=== PATIENT | male | born 1960 | race Caucasian/White ===

== ENCOUNTER 2017-01-04 20:54 | Emergency (ER) | payer OTHER ==
[~2017-01-04] VITALS: Ht 175.3 cm; Wt 78.0 kg
[~2017-01-04 20:54] MED LIST: BACT800T5 PO; CEPH500C3 PO
[2017-01-04 20:56] VITALS: BP 150/88; PULSE 71; RESP 18; TEMP 98.1; O2SAT 97
[2017-01-04] MEDS ORDERED: KETOROLAC TROMETHAMINE 60 MG/2 ML (IM) VIAL IM ONE (21:15)
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
[2017-01-04] MEDS ORDERED: TRAM50TA PO (22:13)
[2017-01-04] MEDS ORDERED: IBUP800T23 PO (22:17)
== END 2017-01-04 22:36 | disposition home or self-care (01) ==
LOC: NEPD 20:54
DX: S92.334A Nondisplaced fracture of third metatarsal bone, right foot, initial encounter for closed fracture (principal); S92.344A Nondisplaced fracture of fourth metatarsal bone, right foot, initial encounter for closed fracture; F41.9 Anxiety disorder, unspecified; G35 Multiple sclerosis; V28.4XXA Motorcycle driver injured in noncollision transport accident in traffic accident, initial encounter; Z79.899 Other long term (current) drug therapy
CPT/HCPCS: 73630; 96372; 99284; J1885; L2114

== ENCOUNTER → 2017-10-13 | Outpatient (CLI) | payer OTHER ==
[~2017-10-13] MED LIST changes: -BACT800T5 PO; -CEPH500C3 PO; +IBUP1TAB7 PO; +TRAM50TA PO
--- NOTE | 2017-10-14 23:11 | EKG ---
Date Performed: 10/13/2017 Time Performed: 09:44:24 PTAGE: 56 years EKG: Sinus rhythm BORDERLINE LEFT AXIS DEVIATION NONSPECIFIC T-WAVE ABNORMALITY ABNORMAL ECG PREVIOUS TRACING : 07/09/2012 16.04 Since the previous tracing, no significant change noted DOCTOR: Von Burns Interpretating Date/Time 10/14/2017 23:09:12
== END ==
LOC: CPRE 09:10
PROVIDERS: ATTEND Specialist
DX: Z01.810 Encounter for preprocedural cardiovascular examination (principal); J32.0 Chronic maxillary sinusitis; J34.2 Deviated nasal septum; J34.3 Hypertrophy of nasal turbinates; J32.3 Chronic sphenoidal sinusitis
CPT/HCPCS: 93005

== ENCOUNTER 2017-10-15 05:57 | Observation (INO) | payer OTHER ==
--- NOTE | 2017-10-14 17:19 | MH ---
cc: Bora Galaviz MD, Michael A MD DATE OF ADMISSION: 10/15/2017 HISTORY OF PRESENT ILLNESS: A 54-year-old gentleman with chronic sinusitis and nasal obstruction for nasal sinus surgery. PAST MEDICAL HISTORY: Unremarkable. PAST SURGICAL HISTORY: Unremarkable. REVIEW OF SYSTEMS, FAMILY HISTORY, SOCIAL HISTORY: Unremarkable. PHYSICAL EXAMINATION: GENERAL: Well appearing patient. No acute distress noted. HEENT: Exam reveals septal deviation, turbinate hypertrophy and mucopurulent secretions. LUNGS: Clear. HEART: Regular rate and rhythm. ABDOMEN: Soft and nontender. EXTREMITIES: Without cyanosis, clubbing or edema. NEUROLOGIC: Alert, oriented, nonfocal neurologic exam. IMPRESSION: A patient with chronic sinusitis and nasal obstruction for nasal sinus surgery. Instructed on method of surgery, possible complications including anesthetic complication cardiac difficulty, pulmonary difficulty, stroke, coma or even ; surgical complication bleeding, infection, risk of injury to orbit including blindness and diplopia, risk of injury to brain, including CSF leak, meningitis, brain abscess or even , septal perforation, dry nose, bleeding with packing and transfusion requirement. Patient appeared to agree and accept and understand above-mentioned risks and benefits. In addition, no guarantees or warranties regarding outcome were given. We will therefore proceed with surgery. Bora Galaviz MD JAYLA/SA/ , 04:54 PM , 05:07 PM
[~2017-10-15] VITALS: Ht 175.3 cm; Wt 70.4 kg
[2017-10-15] MEDS ORDERED: POVIDONE IODINE 5% (ANTISEPSIS KIT) 4 APPLICATIONS EACH NARE PRN (06:15)
[2017-10-15] MEDS ORDERED: SODIUM CHLORID 0.9% 500 ML IV PRN (06:15)
[2017-10-15] MEDS ORDERED: METOPROLOL TARTRATE 25 MG TAB PO PRN (06:15)
[2017-10-15] MEDS ORDERED: LACTATED RINGER'S 1000 ML IV PRN (06:15)
[2017-10-15] MEDS ORDERED: CHLORHEXIDINE GLUCONATE 2 % 1 PACK (2 CLOTHS) TOPICAL PRN (06:15)
[2017-10-15] MEDS ORDERED: LIDOCAINE 1%/EPINEPHrine 1:100,000 SOLN 30 ML VIAL ONE (06:55)
[2017-10-15] MEDS ORDERED: EPINEPHrine HCL (1:1000) 30 MG/30 ML VIAL ONE (06:55)
[2017-10-15] MEDS ORDERED: fentaNYL CITRATE 250 MCG/5 ML AMP ONE (07:04)
[2017-10-15] MEDS ORDERED: ACETAMINOPHEN 1000 MG/100 ML 100 ML IV ONE (07:04)
[2017-10-15] MEDS ORDERED: *MEPERIDINE 25 MG INJ VIAL PERIprocedural Use ONLY ONE (08:31)
[2017-10-15] MEDS ORDERED: LORazepam 2 MG/ML VIAL ONE (08:41)
--- NOTE | 2017-10-15 09:35 | MP ---
cc: Bora Galaviz MD DATE OF OPERATION: 10/15/2017 PREOPERATIVE DIAGNOSES: 1. Chronic sinusitis. 2. Nasal obstruction. PROCEDURE: 1. Open septal reconstruction. 2. Left endoscopic anterior ethmoidectomy. 3. Right endoscopic anterior ethmoidectomy. 4. Left endoscopic frontal sinusotomy. 5. Right endoscopic frontal sinusotomy. 6. Left endoscopic maxillary antrostomy. 7. Right endoscopic maxillary antrostomy with removal of tissue. 8. Both left and right inferior turbinectomies, submucous resection. ANESTHESIA: General anesthesia. ESTIMATED BLOOD LOSS: Less than 25 mL. COMPLICATIONS: No complications. OPERATING SURGEON: Dr. Galaviz. OPERATION FOLLOWS: Prepped and draped in usual fashion. A 1% Xylocaine with 1:100,000 epinephrine injected into the nasal septum, inferior turbinates, middle meatus bilaterally, 1:1000 adrenaline-soaked pledgets were placed and then removed. Once this was achieved, under endoscopic visualization with the microdebrider, an uncinectomy was initially performed on the left side of the nose. The anterior ethmoid was entered and opened with the microdebrider. Minor polypoid changes were removed with the microdebrider. The natural antrostomy identified, enlarged and minor polypoid tissue removed here. As well, under endoscopic visualization, frontal sinus recess dissection performed with microdebrider under endoscopic visualization as well. Once this was achieved, attention turned to the opposite side whereby an anterior ethmoidectomy performed with the microdebrider and uncinectomy, the natural antrostomy identified and enlarged with the microdebrider and the frontal sinus dissection completed as well under endoscopic visualization. Mucoperichondrial incision then made left side of the nose, mucoperichondrial flap elevated. Significant amount of bone and cartilage were removed to improve nasal airway and reduce the nasal fracture. Mucoperichondrial flap reapproximated. Using the Coblator probe with power level 4, multiple insertions were made submucosally in the left and right inferior turbinate, reducing turbinate bulk and preserving mucosa and improving nasal airway. No active bleeding was noted. The patient tolerated the procedure well. MD JAYLA Braxton/SB , 09:01 AM , 09:33 AM
[2017-10-15 12:00] VITALS: BP 138/79; PULSE 60; RESP 19; TEMP 97.2; O2SAT 96
[2017-10-15] MEDS ORDERED: ONDANSETRON HCL 4 MG/2 ML VIAL IV ONE (12:00)
[2017-10-15] MEDS ORDERED: SUCCINYLCHOLINE CHLORIDE 200 MG/10 ML VIAL IV ONE (12:00)
[2017-10-15] MEDS ORDERED: DEXAMETHASONE SOD PHOS 4 MG/ML VIAL IV ONE (12:00)
[2017-10-15] MEDS ORDERED: LIDOCAINE HCL 1% PF 5 ML SYRINGE OTHER ONE (12:00)
[2017-10-15] MEDS ORDERED: PROPOFOL 200 MG/20 ML AMP IV ONE (12:00)
[2017-10-15] MEDS ORDERED: LORazepam 2 MG/ML VIAL IV PUSH ONE (15:30)
[2017-10-15] MEDS ORDERED: ONDANSETRON HCL 4 MG/2 ML VIAL IV PUSH PRN (15:45)
[2017-10-15 16:00] VITALS: BP 144/83; PULSE 69; RESP 19; TEMP 97.4; O2SAT 97
[2017-10-15 16:10] VITALS: O2SAT 96
[2017-10-15] MEDS: ACETAMINOPHEN/HYDROcodone 325 MG/7.5 MG TAB PO PRN (17:19)
[2017-10-15] MEDS ORDERED: DO NOT ADM ANY ANTICOAGULANT DRUGS PRN (17:30)
[2017-10-15 20:00] VITALS: BP 130/91; PULSE 75; RESP 18; TEMP 97.2; O2SAT 96
[2017-10-16] VITALS: BP 138/90; PULSE 68; RESP 18; TEMP 97.4; O2SAT 98
[2017-10-16 04:00] VITALS: BP 126/85; PULSE 66; RESP 18; TEMP 97.5; O2SAT 97
[2017-10-16] MEDS: ACETAMINOPHEN/HYDROcodone 325 MG/7.5 MG TAB PO PRN (07:51)
[2017-10-16 08:00] VITALS: BP 144/76; PULSE 63; RESP 18; TEMP 97.5; O2SAT 98
[2017-10-16 08:54] VITALS: O2SAT 97
== END 2017-10-16 10:34 | disposition home or self-care (01) ==
LOC: HSDC 05:57 → N07A 11:55
PROVIDERS: ADMIT Specialist; ATTEND Specialist
DX: J32.9 Chronic sinusitis, unspecified (principal); J34.89 Other specified disorders of nose and nasal sinuses; E78.5 Hyperlipidemia, unspecified
CPT/HCPCS: 00160; 30140; 30520; 31254; 31256; 31267; 31276; G0378; J0131; J0171; J0330; J1100; J2060; J2175; J2405; J3010; J7120